=== PATIENT | female | born 1980 | race Caucasian/White ===

== ENCOUNTER 2021-01-23 03:36 | Emergency (ER) | payer OTHER ==
[~2021-01-23] VITALS: Ht 157.5 cm; Wt 52.2 kg
[2021-01-23] MEDS ORDERED: RAYOS5 MG PO (03:46)
[2021-01-23] MEDS ORDERED: PLAQUENIL200 MG PO (03:47)
[2021-01-23 03:48] LABS: URINE BILIRUBIN NEGATIVE (Negative); URINE BLOOD NEGATIVE (Negative); URINE CLARITY CLEAR; URINE COLOR YELLOW; URINE GLUCOSE-RANDOM NEGATIVE (Negative); URINE KETONES NEGATIVE (Negative); URINE LEUKOCYTES-REFLEX NEGATIVE (Negative); URINE NITRITE-REFLEX NEGATIVE (Negative); URINE PROTEIN NEGATIVE (Negative); URINE UROBILINOGEN 0.2 E.U./dl (0.2-1.0)
[2021-01-23 04:19] LABS: HEMATOCRIT 41.8 % (37.0-47.0); HEMOGLOBIN 14.4 gm/dL (12.0-15.0); MCH 30.6 pg (26.0-34.0); MCHC 34.6 g/dL (28.0-37.0); MCV 88.4 fL (80.0-100.0); MPV 9.5 fl. (7.2-11.1); NUCLEATED RBCS 0 /100WBC; PLATELET COUNT* 170 thou/uL (150-400); RBC 4.73 mil/uL (4.20-5.00); RDW-CV 12.7 % (10.5-14.5); WBC 12.9 thou/uL (4.0-11.0)
[2021-01-23 04:30] LABS: CALCIUM 8.8 mg/dL (8.5-10.1); CREATININE 0.8 mg/dL (0.6-1.3); POTASSIUM 4.1 mmol/L (3.5-5.1)
[2021-01-23 04:35] LABS: TOTAL BILIRUBIN 0.6 mg/dL (<0.1-1.0); TOTAL PROTEIN 7.4 g/dL (6.4-8.2)
[2021-01-23 05:41] LABS: ABSOLUTE LYMPHOCYTES 1.2 thou/uL (0.8-5.3); ABSOLUTE MONOCYTES 0.8 thou/uL (0.0-1.2); ABSOLUTE NEUTROPHILS 10.5 thou/uL (1.6-8.1); MONOCYTES 6.1 %; POLYS 81.5 %
[2021-01-23 05:42] LABS: ABSOLUTE BASOPHILS 0.1 thou/uL (0.0-0.2); ABSOLUTE EOSINOPHILS 0.1 thou/uL (0.0-0.7); BASOPHILS 0.7 %; EOSINOPHILS 0.7 %
[2021-01-23] MEDS ORDERED: CITRATE OF MAG296 M1 PO ×2 (13:17)
[2021-01-23] MEDS ORDERED: BENTYL 10 MG CA10 MG PO (13:17)
[2021-01-23] MEDS ORDERED: COLACE100 MG PO (13:17)
[2021-01-23] MEDS ORDERED: PHENERGAN 25 MG25 M1 PO (13:17)
[2021-01-23 13:28] VITALS: BP 103/57
== END 2021-01-23 13:29 | disposition still patient (30) ==
LOC: M.ERS 03:36
PROVIDERS: Emergency Medicine
DX: R10.31 Right lower quadrant pain (principal); R11.2 Nausea with vomiting, unspecified